=== PATIENT | female | born 1995 | race Two or more races ===

== ENCOUNTER 2017-12-11 20:38 | Emergency (ER) | payer OTHER ==
[~2017-12-11] VITALS: Ht 160 cm; Wt 102.1 kg
== END 2017-12-12 02:59 | disposition home or self-care (01) ==
LOC: ER 20:38
DX: O26.891 Other specified pregnancy related conditions, first trimester (principal); R10.2 Pelvic and perineal pain; Z34.81 Encounter for supervision of other normal pregnancy, first trimester

== ENCOUNTER 2022-03-17 02:17 | Emergency (ER) | payer OTHER ==
[~2022-03-17] VITALS: Ht 160 cm; Wt 113.4 kg
[2022-03-17] MEDS ORDERED: ACETAMINOPHEN650 M2 PO (04:54)
[2022-03-17] MEDS ORDERED: NORFLEX100MG PO (04:54)
== END 2022-03-17 05:10 | disposition home or self-care (01) ==
LOC: ER 02:17
DX: M62.830 Muscle spasm of back (principal); R07.89 Other chest pain

== ENCOUNTER → 2022-08-11 | Emergency (ER) | payer OTHER ==
[~2022-08-11] VITALS: Ht 160 cm; Wt 108.9 kg
[~2022-08-11] MED LIST: ACETAMINOPHEN650 M2; ACETAMINOPHEN650 M2 PO; NORFLEX100MG PO
== END | disposition left against medical advice (07) ==
LOC: ER 08:41
DX: M25.561 Pain in right knee (principal); Z53.29 Procedure and treatment not carried out because of patient's decision for other reasons

== ENCOUNTER 2023-02-06 23:16 | Emergency (ER) | payer OTHER ==
[~2023-02-06] VITALS: Ht 160 cm; Wt 122.0 kg
== END 2023-02-07 00:42 | disposition home or self-care (01) ==
LOC: ER 23:16
DX: J06.9 Acute upper respiratory infection, unspecified (principal)

== ENCOUNTER 2025-04-30 08:37 | Emergency (ER) | payer OTHER ==
[~2025-04-30] VITALS: Ht 160 cm; Wt 110.7 kg
[2025-04-30] MEDS ORDERED: ORPHENADRINE CITRATE 30 MG/ML AMPUL IM STA (09:07)
[2025-04-30] MEDS ORDERED: KETOROLAC TROMETHAMINE 60 MG VIAL IM STA (09:08)
[2025-04-30] MEDS ORDERED: ORPHENADRINE CITRATE 30 MG/ML AMPUL ONE (09:17)
[2025-04-30] MEDS ORDERED: KETOROLAC TROMETHAMINE 60 MG VIAL IM ONE (09:17)
== END 2025-04-30 09:50 | disposition home or self-care (01) ==
LOC: ER 09:20
DX: M62.830 Muscle spasm of back (principal)

== ENCOUNTER 2025-05-05 14:03 | Emergency (ER) | payer OTHER ==
[~2025-05-05] VITALS: Ht 157.5 cm; Wt 111.1 kg
[2025-05-05] MEDS ORDERED: ORPHENADRINE CITRATE 30 MG/ML AMPUL IM ONE (14:45)
[2025-05-05] MEDS ORDERED: KETOROLAC TROMETHAMINE 60 MG VIAL IM ONE (14:45)
== END 2025-05-05 15:47 | disposition home or self-care (01) ==
LOC: ER 14:03
DX: M54.50 Low back pain, unspecified (principal); M62.830 Muscle spasm of back